=== PATIENT | female | born 1990 | race Caucasian/White ===

== ENCOUNTER → 2016-07-10 | Outpatient (CLI) | payer BC, OTHER ==
--- NOTE | 2016-07-11 08:43 | RAD ---
EXAM DESCRIPTION: KUB CLINICAL HISTORY: UNSPECIFIED ABDOMINAL PAIN COMPARISON: Computerized tomography of the abdomen dated 07 July 2012 TECHNIQUE: KUB FINDINGS: There is an unremarkable bowel gas pattern. There is no mass or calculus observed. IMPRESSION: Normal AP supine abdomen Electronically signed by: Ciro Peralta MD 07/11/2016 8:43 AM CDT
== END | disposition home or self-care (01) ==
LOC: YCFC.O 15:54
PROVIDERS: ATTEND Nurse Practitioner Family
DX: R10.9 Unspecified abdominal pain (principal); K59.04 Chronic idiopathic constipation; R10.11 Right upper quadrant pain

== ENCOUNTER → 2016-07-17 | Outpatient (CLI) | payer BC, OTHER ==
--- NOTE | 2016-07-17 09:52 | US ---
EXAM DESCRIPTION: Gallbladder ultrasound CLINICAL HISTORY: RUQ PAIN COMPARISON: None. TECHNIQUE: Routine sonographic images of the right upper quadrant of the abdomen were acquired and submitted for review. FINDINGS: Liver: Normal in size and echogenicity. Bile ducts- Intrahepatic and extrahepatic bile ducts not dilated with common bile duct measuring 4 mm. Gallbladder: Normal without sludge, calculi, or polyps. The gallbladder wall is normal. Pancreas: Visualized portions are unremarkable. Portions of the body and tail are not well seen due to bowel gas. Ascites: none IMPRESSION: Normal right upper quadrant abdominal ultrasound. Electronically signed by: Bo Edwards MD 07/17/2016 9:51 AM CDT
== END | disposition home or self-care (01) ==
LOC: US 08:32
PROVIDERS: ATTEND Nurse Practitioner Family
DX: R10.13 Epigastric pain (principal)

== ENCOUNTER 2016-11-27 05:51 | Emergency (ER) | payer BC, OTHER ==
[2016-11-27 06:04] VITALS: TEMP 98; O2SAT 99
--- NOTE | 2016-11-27 06:33 | ED.PDOC ---
History of Present Illness - General Chief Complaint: Problem Stated Complaint: bilateral flank pain Time Seen by Provider: 11/27/16 06:25 Source: patient Exam Limitations: no limitations - History of Present Illness Initial Comments: Patient presents with bilateral lower back pain. She thinks she may have a "stone". The pain started yesterday at 3 pm. She had been doing heavy lifting of furniture the day before. 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 The pain does not radiate, worse with movement, better lying flat, no previous episodes quite like this, no associated symptoms. No other complaints. Timing/Duration: other - 15 hours Severity: moderate Improving Factors: rest Worsening Factors: movement Associated Symptoms: denies symptoms Allergies/Adverse Reactions: Allergies Hydrocodone Allergy (Verified 11/27/16 06:04) Home Medications: Ambulatory Orders Cyclobenzaprine HCl [Flexeril] 10 mg PO TID #20 tab 11/27/16 Lubiprostone [Amitiza] 8 mcg PO DAILY 11/27/16 Review of Systems - Review of Systems Constitutional: States: no symptoms reported EENTM: States: no symptoms reported Respiratory: States: no symptoms reported Cardiology: States: no symptoms reported Gastrointestinal/Abdominal: States: no symptoms reported Genitourinary: States: no symptoms reported Musculoskeletal: States: see HPI Skin: States: no symptoms reported Neurological: States: no symptoms reported Endocrine: States: no symptoms reported Hematologic/Lymphatic: States: no symptoms reported Past Medical History (General) - Patient Medical History Hx Seizures: No Hx Stroke: No Hx Dementia: No Hx Asthma: No Hx of COPD: No Hx Cardiac Disorders: No Hx Congestive Heart Failure: No Hx Pacemaker: No Hx Hypertension: No Hx Thyroid Disease: No Hx Diabetes: No Hx Gastroesophageal Reflux: No Hx Renal Disease: No Hx Cancer: No Hx of HIV: No Hx Hepatitis C: No Hx MRSA: No Surgical History: other - Vaccination History Hx Tetanus, Diphtheria Vaccination: No Hx Influenza Vaccination: No Hx Pneumococcal Vaccination: No Immunizations Up to Date: No - Social History Hx Tobacco Use: Yes Hx Chewing Tobacco Use: Yes Hx Alcohol Use: No Hx Substance Use: No Hx Substance Use Treatment: No Hx Depression: No Feels Threatened In Home Enviroment: No Feels Threatened In a Relationship: No Hx Physical Abuse: No Hx Emotional Abuse: No Hx Suspected Abuse: No - Female History Hx Last Menstrual Period: 09/21/13 Patient : No Family Medical History - Family History Mother Family History: Unknown Age (years): 46 Hx Family Hypertension: Yes Hx Family Diabetes: Yes Physical Exam - Physical Exam General Appearance: Alert Respiratory: lungs clear Cardiovascular/Chest: normal peripheral pulses, regular rate, rhythm Gastrointestinal/Abdominal: normal bowel sounds, non tender, soft Back Exam: other - straight and cross leg raises are negative. abduction of the legs with 90 degree flexion of the knee elicit the pain in the quadratus lumborum. Extremity: normal range of motion Neurologic: no motor/sensory deficits Skin Exam: normal color Progress - Progress Progress: 11/27/16 06:34 Toradol 30 mg IM x one. RX for Flexeril. Note for work. Departure - Departure Clinical Impression: Low back sprain Disposition: Discharge to Home or Self Care Condition: Good Departure Forms: ED Discharge - Pt. Copy, Patient Portal Self Enrollment Diet: resume usual diet Activity: increase activity as tolerated Referrals: Beth Harley NP [Primary Care Provider] - 1-2 Weeks Prescriptions: Cyclobenzaprine HCl [Flexeril] 10 mg PO TID #20 tab Home Medications: Ambulatory Orders Cyclobenzaprine HCl [Flexeril] 10 mg PO TID #20 tab 11/27/16 Lubiprostone [Amitiza] 8 mcg PO DAILY 11/27/16 Additional Instructions: Take medication as prescribed. Return to activity as tolerated. Follow up with your primary physician if pain last longer than two weeks.
[2016-11-27] MEDS ORDERED: KETOROLAC TROMETHAMINE INJ 30 MG/ML VIAL IM ONE (06:40)
[2016-11-27 06:58] VITALS: BP 135/75
== END 2016-11-27 06:57 | disposition home or self-care (01) ==
LOC: ER 05:51
DX: S33.5XXA Sprain of ligaments of lumbar spine, initial encounter (principal); Z88.6 Allergy status to analgesic agent; Z87.891 Personal history of nicotine dependence; X50.0XXA Overexertion from strenuous movement or load, initial encounter; Y92.9 Unspecified place or not applicable
CPT/HCPCS: 81001; 81025; J1885

== ENCOUNTER → 2019-11-17 | Outpatient (CLI) | payer BC ==
--- NOTE | 2019-11-18 09:37 | RAD ---
EXAM DESCRIPTION: Knee,Right Complete CLINICAL HISTORY: 29 years, Female, PAIN IN RIGHT KNEE COMPARISON: None TECHNIQUE: Three x-ray views of the right knee FINDINGS: No fracture or dislocation. Bones appear normally mineralized with normal trabecular pattern. Normal appearance of medial and lateral compartments on frontal view. Lateral view shows normal position of the patella. No patellar spurring or enthesopathy. No definite suprapatellar knee joint effusion. Normal contour of quadriceps and patellar tendons. No abnormal patellar tilt or subluxation on patellar sunrise view. IMPRESSION: Negative for fracture or dislocation. Electronically signed by: Blu Salmeron MD 11/18/2019 9:35 AM CDT
== END ==
LOC: RAD 15:42
PROVIDERS: ATTEND Nurse Practitioner Family
DX: M25.561 Pain in right knee (principal)

== ENCOUNTER → 2019-12-29 | Outpatient (CLI) | payer BC | LOC: LAB.O 11:43 | PROVIDERS: ATTEND Nurse Practitioner Family | DX: K92.1 Melena (principal) ==